=== PATIENT | female | born 1980 | race Caucasian/White ===

== ENCOUNTER 2022-10-11 15:49 | Emergency (ER) | payer OTHER ==
[~2022-10-11] VITALS: Ht 157.5 cm; Wt 70.3 kg
--- NOTE | 2022-10-11 15:55 | NUR ---
BIBS C/O R LEG PAIN THAT RADIATED TO HER BUTTOCKS PAIN IS 10/10 AND STATES THAT ITS A PINCHING PAIN, DENIES TRAUMA
[2022-10-11] MEDS ORDERED: LIDO30AD10 TP (16:47)
[2022-10-11] MEDS ORDERED: LIDOCAINE 5% (PATCH) 1 EA PATCH TP ONE ×2 (16:48→17:00)
[2022-10-11] MEDS ORDERED: KETOROLAC TROMETHAMINE INJ 30 MG/ML VIAL ONE (16:49)
[2022-10-11] MEDS ORDERED: KETOROLAC TROMETHAMINE INJ 30 MG/ML VIAL IM ONE (17:00)
[2022-10-11] MEDS ORDERED: HYDR-3976 PO (17:04)
[2022-10-11] MEDS ORDERED: ACET-73 PO (17:04)
[2022-10-11 18:05] VITALS: BP 123/81
== END 2022-10-11 18:06 | disposition home or self-care (01) ==
LOC: ER 15:55
DX: G57.01 Lesion of sciatic nerve, right lower limb (principal); M53.3 Sacrococcygeal disorders, not elsewhere classified; I95.9 Hypotension, unspecified; Z79.899 Other long term (current) drug therapy
CPT/HCPCS: 99283; 96372; J1885

== ENCOUNTER 2022-11-30 20:42 | Emergency (ER) | payer OTHER ==
[~2022-11-30] VITALS: Ht 160 cm; Wt 72.6 kg
[~2022-11-30 20:42] MED LIST: ACET-73 PO; HYDR-3976 PO; LIDO30AD10 TP
[2022-11-30 20:58] VITALS: BP 131/62
[2022-11-30] MEDS ORDERED: KETO10TA2 PO (21:51)
[2022-11-30] MEDS ORDERED: TRAZ-182 PO (21:51)
[2022-11-30] MEDS ORDERED: CYCL5TAB PO (21:51)
[2022-11-30] MEDS ORDERED: CYCLOBENZAPRINE 10 MG TABLET PO ONE (22:00)
[2022-11-30] MEDS ORDERED: KETOROLAC TROMETHAMINE INJ 30 MG/ML VIAL IM ONE (22:00)
[2022-11-30] MEDS ORDERED: KETOROLAC TROMETHAMINE INJ 30 MG/ML VIAL ONE (22:12)
[2022-11-30] MEDS ORDERED: CYCLOBENZAPRINE 10 MG TABLET ONE (22:12)
== END 2022-11-30 23:56 | disposition home or self-care (01) ==
LOC: ER 20:44
DX: M54.42 Lumbago with sciatica, left side (principal); M54.41 Lumbago with sciatica, right side; I95.9 Hypotension, unspecified; Z60.2 Problems related to living alone; Z79.899 Other long term (current) drug therapy
CPT/HCPCS: 99283; 96372; J1885

== ENCOUNTER → 2022-12-29 | Emergency (ER) | payer OTHER ==
[~2022-12-29] VITALS: Ht 160 cm; Wt 79.4 kg
[~2022-12-29] MED LIST changes: +CT SWABBABLE VALVE TRANS SET 1 EA INFUS.SET MC ONE; +CYCL5TAB PO; +FAMOTIDINE/PF INJ 20 MG/2 ML VIAL IV ONE; +IOHEXOL-300 100 ML VIAL IV ONE; +IV NS 0.9% 1,000 ML IV ONE; +IV NS 0.9% 250 ML IV ONE; +KETO10TA2 PO; +MORPHINE SULFATE INJ 2 MG/ML DISP.SYRIN IV ONE; +MORPHINE SULFATE INJ 4 MG/ML DISP.SYRIN ONE; +Magnesium 1GM/D5W 100ML PREMIX 100 ML IV ONE; +ONDANSETRON HCL/PF 4 MG/2 ML VIAL IV ONE; +ONDANSETRON HCL/PF 4 MG/2 ML VIAL ONE; +PIPERACI/TAZO 3.375GM/D5W 50ML PB IV ONE; +PIPERACILLIN /TAZOBACTAM 3.375 G in IV D5W 50 ML IV ONE; +POTASSIUM CHLORIDE 20 MEQ POWDER PACKET ONE; +POTASSIUM CHLORIDE 20 MEQ POWDER PACKET PO ONE; +POTASSIUM CHLORIDE 20 MEQ TAB.PRT.SR PO ONE; +TRAZ-182 PO; +VANCOMYCIN HCL 1.25 GM in IV D5W 260 ML IV ONE
--- NOTE | 2022-12-29 05:35 | NUR ---
URINE SAMPLE COLLECTED AND SENT TO LAB.
--- NOTE | 2022-12-29 05:40 | NUR ---
COVID SWAB COLLECTED AND SENT TO LAB.
[2022-12-29 06:27] LABS: BILIRUBIN,URINE 1+ (NEGATIVE); COLOR,URINE DARK YELLOW (YELLOW); LEUKOCYTE ESTERASE ,URINE NEGATIVE (NEGATIVE); NITRITE, URINE NEGATIVE (NEGATIVE); PH,URINE 5.5 (5.0-8.0); PROTEIN,URINE 2+ mg/dl (NEGATIVE); UGLUCOSE NEGATIVE (NEGATIVE); UROBILINOGEN,URINE 0.2 EU/dL (0.2)
[2022-12-29 06:30] LABS: BASOPHILS # (AUTO) 0.1 K/uL (0.0-0.2); BASOPHILS % (AUTO) 0.2 % (0.0-2.0); EOSINOPHILS % (AUTO) 1.7 % (0.0-6.0); HEMATOCRIT 26 % (33-45); HEMOGLOBIN 8.5 g/dL (11.5-14.8); LYMPHOCYTES # (AUTO) 6.8 K/uL (0.8-4.8); LYMPHOCYTES % (AUTO) 21.6 % (20.0-44.0); MEAN CORPUSCULAR HGB CONC 33 g/dl (31.0-36.0); MEAN CORPUSCULAR VOLUME 81 fL (82-100); MONOCYTES # (AUTO) 7.2 K/uL (0.1-1.30); MONOCYTES % (AUTO) 22.7 % (2.0-12.0); NEUTROPHILS # (AUTO) 16.9 K/uL (1.8-8.9); NEUTROPHILS % (AUTO) 53.8 % (43.0-81.0); PLATELET COUNT (AUTO) 153 K/uL (150-450); RED BLOOD CELL COUNT(AUTO) 3.25 MIL/uL (4.0-5.2)
[2022-12-29 06:46] LABS: WHITE BLOOD COUNT (AUTO) 31.5 K/uL (4.3-11.0)
[2022-12-29 06:51] LABS: BACTERIA,URINE Rare /HPF (None Seen); SQUAMOUS EPITHELIAL CELL,UR Few /HPF (None Seen); WBC,URINE 0-2 /HPF (0-3)
[2022-12-29 07:26] LABS: ALANINE AMINOTRANSFERASE 43 U/L (12-78); ALBUMIN 3.4 g/dL (3.4-5.0); ALKALINE PHOSPHATASE 146 U/L (46-116); ASPARTATE AMINOTRANSFERASE 164 U/L (15-37); BILIRUBIN,DIRECT 0.2 mg/dL (0.0-0.2); BILIRUBIN,TOTAL 0.5 mg/dL (0.2-1.0); CALCIUM, SERUM 9.2 mg/dL (8.5-10.1); CREATININE 1.6 mg/dL (0.6-1.3); GLUCOSE 89 mg/dL (74-106); LIPASE 156 U/L (73-393); SODIUM SERUM 134 mmol/L (136-145); TOTAL PROTEIN, SERUM 6.6 g/dL (6.4-8.2); UREA NITROGEN, BLOOD 33 mg/dL (7-18)
[2022-12-29 07:30] LABS: CARBON DIOXIDE 40 mmol/L (21-32); CHLORIDE 71 mmol/L (98-107); POTASSIUM 1.9 mmol/L (3.5-5.1)
--- NOTE | 2022-12-29 07:43 | NUR ---
iv established. RAC 20G
--- NOTE | 2022-12-29 07:57 | NUR ---
GABY IGNACIO [phone] AFTER PLEASE CALL [phone]
[2022-12-29] MEDS: Magnesium 1GM/D5W 100ML PREMIX 100 ML IV SCH ×2 (08:08→09:06)
--- NOTE | 2022-12-29 08:13 | NUR ---
patient taken to ct via [facility]
--- NOTE | 2022-12-29 08:28 | NUR ---
CALLED [facility] TRANSFER [phone] JOSÉ
--- NOTE | 2022-12-29 08:53 | NUR ---
REQUESTED CLINICALS FAXED TO [facility] [phone]
--- NOTE | 2022-12-29 09:15 | NUR ---
CALLED [facility] [phone] KENA, REQUESTING FACESHEET FAXED TO [phone]
--- NOTE | 2022-12-29 09:32 | NUR ---
[facility] [phone] AT [facility] AND DECLINIG PER ARELY.
--- NOTE | 2022-12-29 09:41 | NUR ---
[facility] DOES NOT HAVE ENT.
--- NOTE | 2022-12-29 09:42 | NUR ---
[facility] TRANSFER [phone] PER NIKKY OLSON IS AT [facility]AC[facility]. ONLY OPEN TO STEMI AND STROKE.
--- NOTE | 2022-12-29 09:47 | NUR ---
[facility] CALLED CASE IS BEING DECLINED DUE TO CAPACITY PER JEICCA.
--- NOTE | 2022-12-29 09:49 | NUR ---
[facility] [phone] VIRGILIO / ZUNILDA FAXING CLINCALS TO [phone]
--- NOTE | 2022-12-29 10:15 | NUR ---
CALL BACK FROM [facility] [employer] [facility] TO INFORM US THAT THEY RECEIVED THE CLINICALS AND WILL CALL US BACK
--- NOTE | 2022-12-29 11:29 | NUR ---
DR. SORIANO FROM [facility] SPEAKING WITH DR. RUSSO.
--- NOTE | 2022-12-29 11:43 | NUR ---
[facility] DECLINING THE PATIENT BECAUSE THEY DONT HAVE ONCOLOGIST
--- NOTE | 2022-12-29 12:36 | NUR ---
[facility] CALLED RN SPEAKING WITH DR. RUSSO.
[2022-12-29 13:10] LABS: BASOPHILS % (MANUAL) 0 % (0.0-2.0); EOSINOPHILS % (MANUAL) 2 % (0-4); LYMPHOCYTES % (MANUAL) 17 % (16-48); MONOCYTES % (MANUAL) 22 % (0-11.0); NEUTROPHILS % (MANUAL) 59 (42-76)
[2022-12-29 13:15] VITALS: BP 117/70
--- NOTE | 2022-12-29 16:15 | NUR ---
[facility] FROM TRANSFER CENTER PT MAY GO TO [facility] ER TO ER WILL HAVE DOCTOR DO PEER TO PEER.
--- NOTE | 2022-12-29 17:31 | NUR ---
CONTACT INFO ROLLY FRIEND - [phone] [facility] SISTER - [phone]
--- NOTE | 2022-12-29 18:44 | NUR ---
transfer info: Received a call from [facility] ([facility] transfer center) patient is going to [facility] [address] [place] [address] [phone] . Call report.
--- NOTE | 2022-12-29 19:22 | NUR ---
CALLED [facility] FOR TRANSPORT, ETA 90 MINS PER JANIA.
--- NOTE | 2022-12-29 19:25 | NUR ---
CALLED TRANSFER CENTER PT ACCEPTED UNDER MED TEAM. ATTENDING DR. HOWARD AT THE ER.
--- NOTE | 2022-12-29 19:34 | NUR ---
report given to transfer facility, GADIEL Gardner
--- NOTE | 2022-12-29 19:35 | NUR ---
CALLED [facility] ETA [phone]
--- NOTE | 2022-12-29 20:42 | NUR ---
NEW ETA [phone] PER JANIA AT [facility]
--- NOTE | 2022-12-29 22:10 | NUR ---
TRANSPORTATION AT BEDSIDE FOR [facility]NAGER
== END | disposition short-term general hospital (02) ==
LOC: ER 04:26
DX: J96.01 Acute respiratory failure with hypoxia (principal); R22.1 Localized swelling, mass and lump, neck; D72.829 Elevated white blood cell count, unspecified; E86.0 Dehydration; K21.9 Gastro-esophageal reflux disease without esophagitis; Z60.2 Problems related to living alone; Z79.899 Other long term (current) drug therapy; Z20.822 Contact with and (suspected) exposure to COVID-19
CPT/HCPCS: 99291; 70491; 96365; 96375; 71045; 96367; 96361; 96366; 87426; 96368; 93005; 74177; 85025; 80048; 87040 ×2; 83690; 80076; 83735; 84703; 81001; 36415; 84484; 96376; 85007; J2270 ×3; J3490; J2405 ×2; J2543 ×2; J7060; J7030; J7050; J7040; J3475 ×2; Q9967 ×2; C9803